=== PATIENT | female | born 1950 | race Two or more races ===

== ENCOUNTER 2021-05-28 14:59 | Inpatient (IN) | payer OTHER ==
[~2021-05-28] VITALS: Ht 165.1 cm; Wt 99.6 kg
[2021-05-28] MEDS ORDERED: DexAMETHasone SOD PHOS 10MG/1ML VIAL INJ IV ONE (15:30)
[2021-05-28] MEDS ORDERED: cefTRIAXone 1GM/50ML D5W 50 ML IV ONE (15:30)
[2021-05-28 15:40] LABS: Basophils # (auto) 0.1 10 ^3/uL (0-0.2); Eosinophils # (auto) 0 10 ^3/uL (0-0.8); Hematocrit 43.2 % (36.0-46.0); Hemoglobin 14.2 g/dL (12.2-16.2); Lymphocytes % (auto) 19.9 % (10.0-50.0); Mean Corpuscular Hemoglobin 28.5 pg (28.0-32.0); Mean Corpuscular Volume 86.5 fL (80.0-100.0); Monocytes # (auto) 0.4 10 ^3/uL (0-1.3); Monocytes % (auto) 8.1 % (0.0-12.0); Neutrophils # (auto) 3.7 10 ^3/uL (1.6-8.6); Nucleated Red Blood Cells % 0.2 %; Red Blood Cells 4.99 10^6/uL (4.0-5.20); White Blood Cell 5.2 10^3/uL (4.4-10.8)
[2021-05-28 15:57] LABS: INR 1.09 (0.9-1.15); Partial Thromboplastin Time 30.5 sec (23.6-33.0)
[2021-05-28 15:58] LABS: Alanine Aminotransferase 91 U/L (13-56); Albumin 2.8 g/dL (3.4-5.0); Anion Gap 11 (5-15); Aspartate Aminotransferase 130 U/L (15-37); Blood Urea Nitrogen 23 mg/dL (7-18); Calcium 8.7 mg/dL (8.5-10.1); Carbon Dioxide 26 mmol/L (21-32); Chloride 99 mmol/L (98-107); Glucose 123 mg/dL (74-106); Potassium 3.3 mmol/L (3.5-5.1); Sodium 136 mmol/L (136-145)
[2021-05-28 16:03] LABS: Alkaline Phosphatase 66 U/L (45-117); Bilirubin, Total 0.8 mg/dL (0.2-1.0); GFR African American 53 mL/min; GFR Non-African American 44 mL/min; Total Protein 7.7 g/dL (6.4-8.2)
[2021-05-28 16:06] LABS: Lactic Acid w/Reflex 2.5 mmol/L (0.4-2.0)
[2021-05-28] MEDS ORDERED: ACETAMINOPHEN 325 MG TAB PO ONE (17:15)
[2021-05-28] MEDS ORDERED: MORPHINE SULFATE INJECTION 2 MG/ML SYRG IV PRN (18:00)
[2021-05-28] MEDS ORDERED: ACETAMINOPHEN 500 MG TAB PO PRN (18:00)
[2021-05-28] MEDS ORDERED: REMDESIVIR PER PHARMACY 0 ML IV SCH ×3 (18:00→18:30)
[2021-05-28] MEDS ORDERED: NITROGLYCERIN 0.4 MG SL TAB SL PRN (18:00)
[2021-05-28] MEDS ORDERED: POTASSIUM EFFERVESENT TAB 25 MEQ PO ONE (18:00)
[2021-05-28] MEDS ORDERED: IOHEXOL 350 MG/ML 100ML IJ ONE (18:32)
[2021-05-28] MEDS: AZITHROMYCIN 500MG/ 250ML 250 ML IV SCH (18:50)
[2021-05-28] MEDS: ASCORBIC ACID 1,000 MG TAB PO SCH (18:51)
[2021-05-28] MEDS: CHOLECALCIFEROL (VITD3) 2,000 UNIT CAP/TAB PO SCH (18:51)
[2021-05-28] MEDS: ZINC SULFATE 220mg CAP or TAB PO SCH (18:51)
[2021-05-28 21:52] VITALS: BP 142/69
[2021-05-28] MEDS: ENOXAPARIN SOD 40 MG/0.4 ML SYRINGE SC SCH (22:49)
[2021-05-28 23:00] VITALS: BP 124/69
[2021-05-29] VITALS (8 sets, daily range): BP systolic 110–142; BP diastolic 59–71
[2021-05-29 05:55] LABS: Basophils # (auto) 0 10 ^3/uL (0-0.2); Basophils % (auto) 0.5 % (0.0-2.0); Eosinophils # (auto) 0 10 ^3/uL (0-0.8); Hematocrit 41.1 % (36.0-46.0); Hemoglobin 13.8 g/dL (12.2-16.2); Lymphocytes # (auto) 0.6 10 ^3/uL (0.4-5.4); Lymphocytes % (auto) 12.9 % (10.0-50.0); Mean Corpuscular Hgb Conc. 33.7 g/dL (32.0-36.0); Monocytes # (auto) 0.4 10 ^3/uL (0-1.3); Monocytes % (auto) 8.3 % (0.0-12.0); Neutrophils # (auto) 3.6 10 ^3/uL (1.6-8.6); Neutrophils % (auto) 78.3 % (37.0-80.0); Nucleated Red Blood Cells % 0.2 %; Red Blood Cells 4.78 10^6/uL (4.0-5.20); Red Cell Distribution Width 14.2 % (11.8-14.3); White Blood Cell 4.6 10^3/uL (4.4-10.8)
[2021-05-29 06:10] LABS: Albumin 2.4 g/dL (3.4-5.0); BUN/Creatinine Ratio 25.4; Calcium 8.6 mg/dL (8.5-10.1); Potassium 3.5 mmol/L (3.5-5.1)
[2021-05-29 06:13] LABS: Bilirubin, Total 0.6 mg/dL (0.2-1.0); Total Protein 7.3 g/dL (6.4-8.2)
[2021-05-29] MEDS: ALBUTEROL SULF HFA 90MCG INH 200DOSE IN PRN ×2 (07:59→18:56)
[2021-05-29] MEDS: BUDESONIDE (INHALATION) 180 MCG IH IN SCH ×3 (07:59→18:56)
[2021-05-29] MEDS: DexAMETHasone SOD PHOS 10MG/1ML VIAL INJ IV SCH (09:58)
[2021-05-29] MEDS: cefTRIAXone 1GM/50ML D5W 50 ML IV SCH (09:58)
[2021-05-29] MEDS: CHOLECALCIFEROL (VITD3) 2,000 UNIT CAP/TAB PO SCH (09:59)
[2021-05-29] MEDS: AZITHROMYCIN 500MG/ 250ML 250 ML IV SCH (09:59)
[2021-05-29] MEDS: ENOXAPARIN SOD 40 MG/0.4 ML SYRINGE SC SCH ×2 (09:59→21:54)
[2021-05-29] MEDS: ASCORBIC ACID 1,000 MG TAB PO SCH (09:59)
[2021-05-29] MEDS: ZINC SULFATE 220mg CAP or TAB PO SCH (09:59)
[2021-05-29] MEDS ORDERED: REMDESIVIR PER PHARMACY 0 ML IV SCH ×3 (10:45→18:00)
[2021-05-29] MEDS ORDERED: LIOT25TA19 PO (14:36)
[2021-05-29] MEDS ORDERED: ALLO300T2 PO (14:36)
[2021-05-29] MEDS ORDERED: LOVA40TA72 PO (14:36)
[2021-05-29] MEDS ORDERED: HYDR25TA5 PO (14:36)
[2021-05-29] MEDS ORDERED: GEMF-19 PO (14:36)
[2021-05-29] MEDS ORDERED: REMDESIVIR 200 MG in NS 210ml LOADING DOSE ADULT IV ONE (15:00)
[2021-05-29] MEDS: SODIUM CHLORIDE 0.9% 1,000 ML IV SCH (22:45)
[2021-05-30 05:22] LABS: Basophils # (auto) 0 10 ^3/uL (0-0.2); Basophils % (auto) 0.1 % (0.0-2.0); Eosinophils # (auto) 0 10 ^3/uL (0-0.8); Hematocrit 37.4 % (36.0-46.0); Hemoglobin 12.7 g/dL (12.2-16.2); Lymphocytes # (auto) 0.8 10 ^3/uL (0.4-5.4); Lymphocytes % (auto) 10.7 % (10.0-50.0); Mean Corpuscular Hemoglobin 29.4 pg (28.0-32.0); Mean Corpuscular Volume 86.4 fL (80.0-100.0); Monocytes # (auto) 0.4 10 ^3/uL (0-1.3); Monocytes % (auto) 5.5 % (0.0-12.0); Neutrophils # (auto) 6.3 10 ^3/uL (1.6-8.6); Neutrophils % (auto) 83.7 % (37.0-80.0); Red Blood Cells 4.33 10^6/uL (4.0-5.20); Red Cell Distribution Width 14.3 % (11.8-14.3); White Blood Cell 7.6 10^3/uL (4.4-10.8)
[2021-05-30 05:40] LABS: Potassium 3.2 mmol/L (3.5-5.1)
[2021-05-30 05:56] VITALS: BP 121/71
[2021-05-30 06:11] LABS: Albumin 2.3 g/dL (3.4-5.0); BUN/Creatinine Ratio 31.5; Bilirubin, Total 0.4 mg/dL (0.2-1.0); CRP High Sensitivity 2.61 mg/dL (< 0.3); Calcium 8.5 mg/dL (8.5-10.1); Total Protein 6.7 g/dL (6.4-8.2)
[2021-05-30] MEDS: ALBUTEROL SULF HFA 90MCG INH 200DOSE IN PRN ×2 (06:20→22:18)
[2021-05-30] MEDS: BUDESONIDE (INHALATION) 180 MCG IH IN SCH ×2 (06:20→22:18)
[2021-05-30] MEDS: SODIUM CHLORIDE 0.9% 1,000 ML IV SCH (06:31)
[2021-05-30] MEDS: Liothyronine Sodium 25 MCG TAB PO SCH (07:00)
[2021-05-30 09:00] VITALS: BP 121/58
[2021-05-30] MEDS: cefTRIAXone 1GM/50ML D5W 50 ML IV SCH (10:06)
[2021-05-30] MEDS: DexAMETHasone SOD PHOS 10MG/1ML VIAL INJ IV SCH (10:06)
[2021-05-30] MEDS: AZITHROMYCIN 500MG/ 250ML 250 ML IV SCH (10:07)
[2021-05-30] MEDS: ZINC SULFATE 220mg CAP or TAB PO SCH (10:07)
[2021-05-30] MEDS: ALLOPURINOL 300 MG TAB PO SCH (10:08)
[2021-05-30] MEDS: CHOLECALCIFEROL (VITD3) 2,000 UNIT CAP/TAB PO SCH (10:08)
[2021-05-30] MEDS: GEMFIBROZIL 600 MG TAB PO SCH ×2 (10:08→21:09)
[2021-05-30] MEDS: ASCORBIC ACID 1,000 MG TAB PO SCH (10:08)
[2021-05-30] MEDS: ENOXAPARIN SOD 40 MG/0.4 ML SYRINGE SC SCH ×2 (10:09→21:09)
[2021-05-30 13:00] VITALS: BP 132/65
[2021-05-30 17:00] VITALS: BP 110/61
[2021-05-30] MEDS: REMDESIVIR 100mg 100 MG in SODIUM CHL 0.9% 230 ML IV SCH (18:00)
[2021-05-30] MEDS: PRAVASTATIN SODIUM 20 MG TAB PO SCH (21:09)
[2021-05-30 22:00] VITALS: BP 126/70
[2021-05-31 05:00] VITALS: BP 129/73
[2021-05-31 06:08] LABS: Basophils # (auto) 0 10 ^3/uL (0-0.2); Basophils % (auto) 0.3 % (0.0-2.0); Eosinophils # (auto) 0 10 ^3/uL (0-0.8); Hematocrit 37.4 % (36.0-46.0); Hemoglobin 12.5 g/dL (12.2-16.2); Lymphocytes # (auto) 0.7 10 ^3/uL (0.4-5.4); Lymphocytes % (auto) 12.2 % (10.0-50.0); Mean Corpuscular Hemoglobin 28.9 pg (28.0-32.0); Mean Corpuscular Hgb Conc. 33.3 g/dL (32.0-36.0); Mean Corpuscular Volume 86.8 fL (80.0-100.0); Monocytes # (auto) 0.4 10 ^3/uL (0-1.3); Monocytes % (auto) 7.6 % (0.0-12.0); Neutrophils # (auto) 4.4 10 ^3/uL (1.6-8.6); Neutrophils % (auto) 79.9 % (37.0-80.0); Nucleated Red Blood Cells % 0.1 %; Red Blood Cells 4.31 10^6/uL (4.0-5.20); Red Cell Distribution Width 14.5 % (11.8-14.3); White Blood Cell 5.5 10^3/uL (4.4-10.8)
[2021-05-31 06:31] LABS: Potassium 3.5 mmol/L (3.5-5.1)
[2021-05-31 06:36] LABS: Albumin 2.1 g/dL (3.4-5.0); BUN/Creatinine Ratio 31.3; Calcium 8.2 mg/dL (8.5-10.1)
[2021-05-31 06:39] LABS: Bilirubin, Total 0.3 mg/dL (0.2-1.0); Total Protein 6.2 g/dL (6.4-8.2)
[2021-05-31] MEDS: BUDESONIDE (INHALATION) 180 MCG IH IN SCH ×2 (06:39→21:58)
[2021-05-31] MEDS: ALBUTEROL SULF HFA 90MCG INH 200DOSE IN PRN ×2 (06:39→21:58)
[2021-05-31] MEDS: Liothyronine Sodium 25 MCG TAB PO SCH (06:45)
[2021-05-31] MEDS: cefTRIAXone 1GM/50ML D5W 50 ML IV SCH (08:40)
[2021-05-31 09:00] VITALS: BP 132/57
[2021-05-31] MEDS: DexAMETHasone SOD PHOS 10MG/1ML VIAL INJ IV SCH (09:47)
[2021-05-31] MEDS: AZITHROMYCIN 500MG/ 250ML 250 ML IV SCH (09:47)
[2021-05-31] MEDS: GEMFIBROZIL 600 MG TAB PO SCH ×2 (09:48→20:47)
[2021-05-31] MEDS: ENOXAPARIN SOD 40 MG/0.4 ML SYRINGE SC SCH ×2 (09:48→20:47)
[2021-05-31] MEDS: CHOLECALCIFEROL (VITD3) 2,000 UNIT CAP/TAB PO SCH (09:48)
[2021-05-31] MEDS: ZINC SULFATE 220mg CAP or TAB PO SCH (09:48)
[2021-05-31] MEDS: ALLOPURINOL 300 MG TAB PO SCH (09:48)
[2021-05-31] MEDS: ASCORBIC ACID 1,000 MG TAB PO SCH (09:48)
[2021-05-31 13:00] VITALS: BP 135/65
[2021-05-31] MEDS: REMDESIVIR 100mg 100 MG in SODIUM CHL 0.9% 230 ML IV SCH (15:11)
[2021-05-31 17:00] VITALS: BP 139/70
[2021-05-31] MEDS: PRAVASTATIN SODIUM 20 MG TAB PO SCH (20:47)
[2021-05-31 22:00] VITALS: BP 136/72
[2021-06-01 05:00] VITALS: BP 121/70
[2021-06-01 05:29] LABS: Basophils # (auto) 0 10 ^3/uL (0-0.2); Basophils % (auto) 0.1 % (0.0-2.0); Eosinophils # (auto) 0 10 ^3/uL (0-0.8); Hematocrit 37.7 % (36.0-46.0); Hemoglobin 12.5 g/dL (12.2-16.2); Lymphocytes # (auto) 0.7 10 ^3/uL (0.4-5.4); Lymphocytes % (auto) 10.4 % (10.0-50.0); Mean Corpuscular Hemoglobin 28.6 pg (28.0-32.0); Mean Corpuscular Hgb Conc. 33.2 g/dL (32.0-36.0); Mean Corpuscular Volume 86.1 fL (80.0-100.0); Monocytes # (auto) 0.5 10 ^3/uL (0-1.3); Monocytes % (auto) 6.8 % (0.0-12.0); Neutrophils # (auto) 5.7 10 ^3/uL (1.6-8.6); Neutrophils % (auto) 82.7 % (37.0-80.0); Nucleated Red Blood Cells % 0.1 %; Red Blood Cells 4.38 10^6/uL (4.0-5.20); Red Cell Distribution Width 14.2 % (11.8-14.3); White Blood Cell 6.9 10^3/uL (4.4-10.8)
[2021-06-01] MEDS: BUDESONIDE (INHALATION) 180 MCG IH IN SCH ×2 (06:19→20:52)
[2021-06-01] MEDS: ALBUTEROL SULF HFA 90MCG INH 200DOSE IN PRN (06:19)
[2021-06-01 06:20] LABS: Calcium 8.5 mg/dL (8.5-10.1); Potassium 3.4 mmol/L (3.5-5.1)
[2021-06-01 06:23] LABS: BUN/Creatinine Ratio 25.6
[2021-06-01 06:31] LABS: Bilirubin, Total 0.3 mg/dL (0.2-1.0); Total Protein 6.2 g/dL (6.4-8.2)
[2021-06-01] MEDS: Liothyronine Sodium 25 MCG TAB PO SCH (06:49)
[2021-06-01 09:00] VITALS: BP 123/55
[2021-06-01] MEDS: cefTRIAXone 1GM/50ML D5W 50 ML IV SCH ×2 (09:35→16:31)
[2021-06-01] MEDS: DexAMETHasone SOD PHOS 10MG/1ML VIAL INJ IV SCH (09:35)
[2021-06-01] MEDS: ASCORBIC ACID 1,000 MG TAB PO SCH (09:36)
[2021-06-01] MEDS: GEMFIBROZIL 600 MG TAB PO SCH ×2 (09:36→21:36)
[2021-06-01] MEDS: ZINC SULFATE 220mg CAP or TAB PO SCH (09:36)
[2021-06-01] MEDS: AZITHROMYCIN 500MG/ 250ML 250 ML IV SCH (09:36)
[2021-06-01] MEDS: CHOLECALCIFEROL (VITD3) 2,000 UNIT CAP/TAB PO SCH (09:39)
[2021-06-01] MEDS: ALLOPURINOL 300 MG TAB PO SCH (09:41)
[2021-06-01] MEDS: ENOXAPARIN SOD 40 MG/0.4 ML SYRINGE SC SCH ×2 (09:41→21:36)
[2021-06-01 13:00] VITALS: BP 126/66
[2021-06-01] MEDS: REMDESIVIR 100mg 100 MG in SODIUM CHL 0.9% 230 ML IV SCH (16:31)
[2021-06-01 17:06] VITALS: BP 121/72
[2021-06-01] MEDS: ALBUTEROL SULF HFA 90MCG INH 200DOSE IN SCH (20:52)
[2021-06-01] MEDS: PRAVASTATIN SODIUM 20 MG TAB PO SCH (21:36)
[2021-06-01 22:00] VITALS: BP 143/65
[2021-06-02 05:00] VITALS: BP 133/66
[2021-06-02] MEDS: Liothyronine Sodium 25 MCG TAB PO SCH (06:17)
[2021-06-02] MEDS: BUDESONIDE (INHALATION) 180 MCG IH IN SCH ×3 (06:19→19:38)
[2021-06-02] MEDS: ALBUTEROL SULF HFA 90MCG INH 200DOSE IN SCH ×4 (06:19→19:38)
[2021-06-02 06:22] LABS: Basophils # (auto) 0 10 ^3/uL (0-0.2); Basophils % (auto) 0.1 % (0.0-2.0); Eosinophils # (auto) 0 10 ^3/uL (0-0.8); Hematocrit 37.8 % (36.0-46.0); Hemoglobin 12.9 g/dL (12.2-16.2); Lymphocytes # (auto) 0.9 10 ^3/uL (0.4-5.4); Lymphocytes % (auto) 13.4 % (10.0-50.0); Mean Corpuscular Hemoglobin 29.6 pg (28.0-32.0); Mean Corpuscular Volume 86.9 fL (80.0-100.0); Monocytes # (auto) 0.5 10 ^3/uL (0-1.3); Monocytes % (auto) 6.8 % (0.0-12.0); Neutrophils # (auto) 5.4 10 ^3/uL (1.6-8.6); Neutrophils % (auto) 79.7 % (37.0-80.0); Nucleated Red Blood Cells % 0.1 %; Red Blood Cells 4.35 10^6/uL (4.0-5.20); Red Cell Distribution Width 14.4 % (11.8-14.3); White Blood Cell 6.8 10^3/uL (4.4-10.8)
[2021-06-02 06:45] LABS: Potassium 3.5 mmol/L (3.5-5.1)
[2021-06-02 06:50] LABS: BUN/Creatinine Ratio 27.8; Calcium 8.7 mg/dL (8.5-10.1)
[2021-06-02 07:00] LABS: Bilirubin, Total 0.4 mg/dL (0.2-1.0); CRP High Sensitivity 1.64 mg/dL (< 0.3); Total Protein 6.3 g/dL (6.4-8.2)
[2021-06-02 08:56] VITALS: BP 132/67
[2021-06-02] MEDS: cefTRIAXone 1GM/50ML D5W 50 ML IV SCH (10:47)
[2021-06-02] MEDS: GEMFIBROZIL 600 MG TAB PO SCH ×2 (10:47→21:46)
[2021-06-02] MEDS: ZINC SULFATE 220mg CAP or TAB PO SCH (10:47)
[2021-06-02] MEDS: DexAMETHasone SOD PHOS 10MG/1ML VIAL INJ IV SCH (10:47)
[2021-06-02] MEDS: ASCORBIC ACID 1,000 MG TAB PO SCH (10:47)
[2021-06-02] MEDS: CHOLECALCIFEROL (VITD3) 2,000 UNIT CAP/TAB PO SCH (10:48)
[2021-06-02] MEDS: ENOXAPARIN SOD 40 MG/0.4 ML SYRINGE SC SCH ×2 (10:48→21:46)
[2021-06-02] MEDS: ALLOPURINOL 300 MG TAB PO SCH (10:48)
[2021-06-02 13:00] VITALS: BP 137/63
[2021-06-02] MEDS: REMDESIVIR 100mg 100 MG in SODIUM CHL 0.9% 230 ML IV SCH (16:00)
[2021-06-02 17:00] VITALS: BP 148/71
[2021-06-02 21:46] VITALS: BP 129/71
[2021-06-02] MEDS: PRAVASTATIN SODIUM 20 MG TAB PO SCH (21:46)
[2021-06-03 04:46] VITALS: BP 129/71
[2021-06-03 05:25] VITALS: BP 123/78
[2021-06-03 06:09] LABS: Hematocrit 38.7 % (36.0-46.0); Hemoglobin 13.3 g/dL (12.2-16.2); Mean Corpuscular Hemoglobin 29.8 pg (28.0-32.0); Mean Corpuscular Hgb Conc. 34.3 g/dL (32.0-36.0); Mean Corpuscular Volume 86.8 fL (80.0-100.0); Red Blood Cells 4.46 10^6/uL (4.0-5.20); Red Cell Distribution Width 14.3 % (11.8-14.3); White Blood Cell 6.6 10^3/uL (4.4-10.8)
[2021-06-03] MEDS: ALBUTEROL SULF HFA 90MCG INH 200DOSE IN SCH (06:20)
[2021-06-03] MEDS: BUDESONIDE (INHALATION) 180 MCG IH IN SCH (06:21)
[2021-06-03 06:29] LABS: Potassium 3.6 mmol/L (3.5-5.1)
[2021-06-03 06:38] LABS: BUN/Creatinine Ratio 24.4; Bilirubin, Total 0.4 mg/dL (0.2-1.0); Calcium 8.7 mg/dL (8.5-10.1); Total Protein 6.3 g/dL (6.4-8.2)
[2021-06-03] MEDS: Liothyronine Sodium 25 MCG TAB PO SCH (07:00)
[2021-06-03 07:20] LABS: Basophils % (manual) 0 (0.0-2.0); Blast Cells 0; Eosinophils % (manual) 0 (0-7); Metamyelocytes % 0; Myelocytes % 0; Promyelocytes % 0; Reactive Lymphocytes 0
[2021-06-03] MEDS: ALLOPURINOL 300 MG TAB PO SCH (08:42)
[2021-06-03] MEDS: DexAMETHasone SOD PHOS 10MG/1ML VIAL INJ IV SCH (08:42)
[2021-06-03] MEDS: ENOXAPARIN SOD 40 MG/0.4 ML SYRINGE SC SCH ×2 (08:42→22:16)
[2021-06-03] MEDS: cefTRIAXone 1GM/50ML D5W 50 ML IV SCH (08:42)
[2021-06-03] MEDS: ZINC SULFATE 220mg CAP or TAB PO SCH (08:42)
[2021-06-03] MEDS: ASCORBIC ACID 1,000 MG TAB PO SCH (08:43)
[2021-06-03] MEDS: CHOLECALCIFEROL (VITD3) 2,000 UNIT CAP/TAB PO SCH (08:43)
[2021-06-03] MEDS: GEMFIBROZIL 600 MG TAB PO SCH ×2 (08:43→22:15)
[2021-06-03 09:00] VITALS: BP 126/67
[2021-06-03 09:05] LABS: Band Neutrophils % (manual) 1; Lymphocytes % (manual) 9 (10.0-50.0); Monocytes % (manual) 12 (0-12)
[2021-06-03 13:00] VITALS: BP 142/72
[2021-06-03] MEDS ORDERED: FUROSEMIDE 20 MG/2 ML VIAL IV ONE (13:00)
[2021-06-03 17:12] VITALS: BP 102/53
[2021-06-03 22:00] VITALS: BP 127/68
[2021-06-03] MEDS: PRAVASTATIN SODIUM 20 MG TAB PO SCH (22:15)
[2021-06-04 05:00] VITALS: BP 124/72
[2021-06-04] MEDS: BUDESONIDE (INHALATION) 180 MCG IH IN SCH ×2 (06:07→20:21)
[2021-06-04 06:42] LABS: Basophils # (auto) 0 10 ^3/uL (0-0.2); Eosinophils # (auto) 0 10 ^3/uL (0-0.8); Eosinophils % (auto) 0.5 % (0.0-7.0); Hematocrit 40.4 % (36.0-46.0); Hemoglobin 13.4 g/dL (12.2-16.2); Lymphocytes % (auto) 13.7 % (10.0-50.0); Mean Corpuscular Hgb Conc. 33.3 g/dL (32.0-36.0); Mean Corpuscular Volume 87.1 fL (80.0-100.0); Monocytes # (auto) 0.5 10 ^3/uL (0-1.3); Monocytes % (auto) 6.6 % (0.0-12.0); Neutrophils % (auto) 79.2 % (37.0-80.0); Nucleated Red Blood Cells % 0.1 %; Red Blood Cells 4.64 10^6/uL (4.0-5.20); Red Cell Distribution Width 14.1 % (11.8-14.3); White Blood Cell 7.5 10^3/uL (4.4-10.8)
[2021-06-04] MEDS: Liothyronine Sodium 25 MCG TAB PO SCH (06:45)
[2021-06-04 06:56] LABS: Potassium 3.5 mmol/L (3.5-5.1)
[2021-06-04 07:13] LABS: Albumin 2.1 g/dL (3.4-5.0); Bilirubin, Total 0.4 mg/dL (0.2-1.0); CRP High Sensitivity 1.24 mg/dL (< 0.3); Calcium 8.7 mg/dL (8.5-10.1); Total Protein 6.5 g/dL (6.4-8.2)
[2021-06-04 08:00] VITALS: BP 124/64
[2021-06-04 09:14] VITALS: BP 124/64
[2021-06-04] MEDS: cefTRIAXone 1GM/50ML D5W 50 ML IV SCH (09:22)
[2021-06-04] MEDS: CHOLECALCIFEROL (VITD3) 2,000 UNIT CAP/TAB PO SCH (09:23)
[2021-06-04] MEDS: DexAMETHasone SOD PHOS 10MG/1ML VIAL INJ IV SCH (09:23)
[2021-06-04] MEDS: ENOXAPARIN SOD 40 MG/0.4 ML SYRINGE SC SCH ×2 (09:23→21:39)
[2021-06-04] MEDS: GEMFIBROZIL 600 MG TAB PO SCH ×2 (09:24→21:39)
[2021-06-04] MEDS: ZINC SULFATE 220mg CAP or TAB PO SCH (09:24)
[2021-06-04] MEDS: ASCORBIC ACID 1,000 MG TAB PO SCH (09:25)
[2021-06-04] MEDS: ALLOPURINOL 300 MG TAB PO SCH (09:25)
[2021-06-04] MEDS ORDERED: FUROSEMIDE 40 MG/4 ML VIAL IV ONE (11:00)
[2021-06-04 13:05] VITALS: BP 100/46
[2021-06-04 17:27] VITALS: BP 114/63
[2021-06-04] MEDS: ALBUTEROL SULF HFA 90MCG INH 200DOSE IN PRN (20:21)
[2021-06-04] MEDS: PRAVASTATIN SODIUM 20 MG TAB PO SCH (21:38)
[2021-06-04 22:00] VITALS: BP 106/67
[2021-06-05 05:00] VITALS: BP 120/68
[2021-06-05] MEDS: Liothyronine Sodium 25 MCG TAB PO SCH (06:14)
[2021-06-05 07:00] LABS: Basophils # (auto) 0 10 ^3/uL (0-0.2); Eosinophils # (auto) 0 10 ^3/uL (0-0.8); Eosinophils % (auto) 0.1 % (0.0-7.0); Hemoglobin 13.5 g/dL (12.2-16.2); Lymphocytes # (auto) 0.7 10 ^3/uL (0.4-5.4); Lymphocytes % (auto) 8.8 % (10.0-50.0); Mean Corpuscular Hemoglobin 29.2 pg (28.0-32.0); Mean Corpuscular Hgb Conc. 33.7 g/dL (32.0-36.0); Mean Corpuscular Volume 86.8 fL (80.0-100.0); Monocytes # (auto) 0.6 10 ^3/uL (0-1.3); Monocytes % (auto) 7.8 % (0.0-12.0); Neutrophils # (auto) 6.8 10 ^3/uL (1.6-8.6); Neutrophils % (auto) 83.3 % (37.0-80.0); Red Blood Cells 4.61 10^6/uL (4.0-5.20); Red Cell Distribution Width 14.1 % (11.8-14.3); White Blood Cell 8.1 10^3/uL (4.4-10.8)
[2021-06-05 07:13] LABS: Albumin 2.2 g/dL (3.4-5.0); Calcium 8.8 mg/dL (8.5-10.1); Magnesium 2.2 mg/dL (1.6-2.6); Potassium 3.9 mmol/L (3.5-5.1)
[2021-06-05] MEDS: ALBUTEROL SULF HFA 90MCG INH 200DOSE IN PRN ×2 (07:19→19:46)
[2021-06-05] MEDS: BUDESONIDE (INHALATION) 180 MCG IH IN SCH ×2 (07:19→19:46)
[2021-06-05 07:22] LABS: BUN/Creatinine Ratio 34.1; Bilirubin, Total 0.4 mg/dL (0.2-1.0); CRP High Sensitivity 1.32 mg/dL (< 0.3); Total Protein 6.8 g/dL (6.4-8.2)
[2021-06-05] MEDS: cefTRIAXone 1GM/50ML D5W 50 ML IV SCH (08:53)
[2021-06-05 09:00] VITALS: BP 108/51
[2021-06-05] MEDS: FUROSEMIDE 40 MG/4 ML VIAL IV SCH (09:27)
[2021-06-05] MEDS: ENOXAPARIN SOD 40 MG/0.4 ML SYRINGE SC SCH ×2 (09:27→21:40)
[2021-06-05] MEDS: DexAMETHasone SOD PHOS 10MG/1ML VIAL INJ IV SCH (09:27)
[2021-06-05] MEDS: ZINC SULFATE 220mg CAP or TAB PO SCH (09:28)
[2021-06-05] MEDS: GEMFIBROZIL 600 MG TAB PO SCH ×2 (09:28→21:40)
[2021-06-05] MEDS: ALLOPURINOL 300 MG TAB PO SCH (09:28)
[2021-06-05] MEDS: CHOLECALCIFEROL (VITD3) 2,000 UNIT CAP/TAB PO SCH (09:28)
[2021-06-05] MEDS: ASCORBIC ACID 1,000 MG TAB PO SCH (09:28)
[2021-06-05 16:56] VITALS: BP 112/57
[2021-06-05 20:00] VITALS: BP 112/57
[2021-06-05] MEDS: PRAVASTATIN SODIUM 20 MG TAB PO SCH (21:40)
[2021-06-05 22:00] VITALS: BP 115/55
[2021-06-06] VITALS (7 sets, daily range): BP systolic 106–133; BP diastolic 48–77
[2021-06-06 05:59] LABS: Albumin 2.2 g/dL (3.4-5.0); BUN/Creatinine Ratio 36.9
[2021-06-06 06:02] LABS: Bilirubin, Total 0.4 mg/dL (0.2-1.0); Total Protein 6.9 g/dL (6.4-8.2)
[2021-06-06] MEDS: Liothyronine Sodium 25 MCG TAB PO SCH (06:16)
[2021-06-06] MEDS: ALBUTEROL SULF HFA 90MCG INH 200DOSE IN PRN ×2 (06:32→19:28)
[2021-06-06] MEDS: BUDESONIDE (INHALATION) 180 MCG IH IN SCH ×2 (06:33→19:28)
[2021-06-06] MEDS: cefTRIAXone 1GM/50ML D5W 50 ML IV SCH (10:20)
[2021-06-06] MEDS: ASCORBIC ACID 1,000 MG TAB PO SCH (10:21)
[2021-06-06] MEDS: DexAMETHasone SOD PHOS 10MG/1ML VIAL INJ IV SCH (10:21)
[2021-06-06] MEDS: ZINC SULFATE 220mg CAP or TAB PO SCH (10:21)
[2021-06-06] MEDS: GEMFIBROZIL 600 MG TAB PO SCH ×2 (10:21→21:41)
[2021-06-06] MEDS: FUROSEMIDE 40 MG/4 ML VIAL IV SCH (10:21)
[2021-06-06] MEDS: ENOXAPARIN SOD 40 MG/0.4 ML SYRINGE SC SCH ×2 (10:22→21:41)
[2021-06-06] MEDS: CHOLECALCIFEROL (VITD3) 2,000 UNIT CAP/TAB PO SCH (10:22)
[2021-06-06] MEDS: ALLOPURINOL 300 MG TAB PO SCH (10:22)
[2021-06-06] MEDS: PRAVASTATIN SODIUM 20 MG TAB PO SCH (21:41)
[2021-06-07 05:00] VITALS: BP 130/78
[2021-06-07] MEDS: Liothyronine Sodium 25 MCG TAB PO SCH (06:38)
[2021-06-07] MEDS: ALBUTEROL SULF HFA 90MCG INH 200DOSE IN PRN ×2 (08:49→22:22)
[2021-06-07] MEDS: BUDESONIDE (INHALATION) 180 MCG IH IN SCH ×2 (08:50→22:22)
[2021-06-07 09:00] VITALS: BP 93/47
[2021-06-07] MEDS: cefTRIAXone 1GM/50ML D5W 50 ML IV SCH (09:32)
[2021-06-07] MEDS: DexAMETHasone SOD PHOS 10MG/1ML VIAL INJ IV SCH (09:33)
[2021-06-07] MEDS: ZINC SULFATE 220mg CAP or TAB PO SCH (09:33)
[2021-06-07] MEDS: FUROSEMIDE 40 MG/4 ML VIAL IV SCH (09:33)
[2021-06-07] MEDS: GEMFIBROZIL 600 MG TAB PO SCH ×2 (09:33→22:05)
[2021-06-07] MEDS: ALLOPURINOL 300 MG TAB PO SCH (09:34)
[2021-06-07] MEDS: CHOLECALCIFEROL (VITD3) 2,000 UNIT CAP/TAB PO SCH (09:34)
[2021-06-07] MEDS: ASCORBIC ACID 1,000 MG TAB PO SCH (09:34)
[2021-06-07] MEDS: ENOXAPARIN SOD 40 MG/0.4 ML SYRINGE SC SCH ×2 (09:35→22:05)
[2021-06-07 13:00] VITALS: BP 116/72
[2021-06-07 17:00] VITALS: BP 108/53
[2021-06-07 20:00] VITALS: BP 103/73
[2021-06-07] MEDS: PRAVASTATIN SODIUM 20 MG TAB PO SCH (22:06)
[2021-06-07 22:31] VITALS: BP 105/73
[2021-06-08 05:00] VITALS: BP 134/75
[2021-06-08] MEDS: Liothyronine Sodium 25 MCG TAB PO SCH (07:12)
[2021-06-08] MEDS: cefTRIAXone 1GM/50ML D5W 50 ML IV SCH (08:34)
[2021-06-08 09:00] VITALS: BP 107/61
[2021-06-08] MEDS: ALLOPURINOL 300 MG TAB PO SCH (09:35)
[2021-06-08] MEDS: FUROSEMIDE 40 MG/4 ML VIAL IV SCH (09:35)
[2021-06-08] MEDS: DexAMETHasone SOD PHOS 10MG/1ML VIAL INJ IV SCH (09:35)
[2021-06-08] MEDS: CHOLECALCIFEROL (VITD3) 2,000 UNIT CAP/TAB PO SCH (09:35)
[2021-06-08] MEDS: ASCORBIC ACID 1,000 MG TAB PO SCH (09:35)
[2021-06-08] MEDS: GEMFIBROZIL 600 MG TAB PO SCH ×2 (09:35→22:39)
[2021-06-08] MEDS: ZINC SULFATE 220mg CAP or TAB PO SCH (09:35)
[2021-06-08] MEDS: ENOXAPARIN SOD 40 MG/0.4 ML SYRINGE SC SCH ×2 (09:36→22:40)
[2021-06-08] MEDS: BUDESONIDE (INHALATION) 180 MCG IH IN SCH ×2 (10:33→21:50)
[2021-06-08] MEDS: ALBUTEROL SULF HFA 90MCG INH 200DOSE IN PRN ×2 (10:34→21:50)
[2021-06-08 13:00] VITALS: BP 114/71
[2021-06-08 17:00] VITALS: BP 115/51
[2021-06-08 21:54] VITALS: BP 115/51
[2021-06-08 22:00] VITALS: BP 116/65
[2021-06-08] MEDS: PRAVASTATIN SODIUM 20 MG TAB PO SCH (22:40)
[2021-06-09 05:30] VITALS: BP 112/70
[2021-06-09] MEDS: Liothyronine Sodium 25 MCG TAB PO SCH (06:44)
[2021-06-09] MEDS: BUDESONIDE (INHALATION) 180 MCG IH IN SCH ×2 (06:49→22:09)
[2021-06-09] MEDS: ALBUTEROL SULF HFA 90MCG INH 200DOSE IN PRN ×2 (06:49→22:09)
[2021-06-09 08:00] VITALS: BP 123/64
[2021-06-09 08:58] VITALS: BP 123/64
[2021-06-09] MEDS: GEMFIBROZIL 600 MG TAB PO SCH ×2 (09:56→21:38)
[2021-06-09] MEDS: CHOLECALCIFEROL (VITD3) 2,000 UNIT CAP/TAB PO SCH (09:56)
[2021-06-09] MEDS: ALLOPURINOL 300 MG TAB PO SCH (09:56)
[2021-06-09] MEDS: ASCORBIC ACID 1,000 MG TAB PO SCH (09:56)
[2021-06-09] MEDS: ZINC SULFATE 220mg CAP or TAB PO SCH (09:56)
[2021-06-09] MEDS: DexAMETHasone SOD PHOS 10MG/1ML VIAL INJ IV SCH (09:57)
[2021-06-09] MEDS: FUROSEMIDE 40 MG/4 ML VIAL IV SCH (10:27)
[2021-06-09 13:00] VITALS: BP 103/49
[2021-06-09] MEDS: PRAVASTATIN SODIUM 20 MG TAB PO SCH (21:39)
[2021-06-09 22:00] VITALS: BP 107/55
[2021-06-10 05:00] VITALS: BP 121/73
[2021-06-10] MEDS: Liothyronine Sodium 25 MCG TAB PO SCH (06:22)
[2021-06-10] MEDS: ALBUTEROL SULF HFA 90MCG INH 200DOSE IN PRN (07:12)
[2021-06-10] MEDS: BUDESONIDE (INHALATION) 180 MCG IH IN SCH ×2 (07:12→20:10)
[2021-06-10 07:21] LABS: Calcium 9.5 mg/dL (8.5-10.1); Potassium 3.9 mmol/L (3.5-5.1)
[2021-06-10 07:23] LABS: BUN/Creatinine Ratio 42.7
[2021-06-10] MEDS: ASCORBIC ACID 1,000 MG TAB PO SCH (09:28)
[2021-06-10] MEDS: GEMFIBROZIL 600 MG TAB PO SCH ×2 (09:29→21:28)
[2021-06-10] MEDS: DexAMETHasone SOD PHOS 10MG/1ML VIAL INJ IV SCH (09:29)
[2021-06-10] MEDS: CHOLECALCIFEROL (VITD3) 2,000 UNIT CAP/TAB PO SCH (09:29)
[2021-06-10] MEDS: ZINC SULFATE 220mg CAP or TAB PO SCH (09:29)
[2021-06-10] MEDS: ALLOPURINOL 300 MG TAB PO SCH (09:29)
[2021-06-10] MEDS: FUROSEMIDE 40 MG/4 ML VIAL IV SCH (09:30)
[2021-06-10 09:37] VITALS: BP 103/63
[2021-06-10 13:14] VITALS: BP 129/65
[2021-06-10 17:00] VITALS: BP 106/64
[2021-06-10] MEDS: ALBUTEROL SULF HFA 90MCG INH 200DOSE IN SCH (20:10)
[2021-06-10] MEDS: PRAVASTATIN SODIUM 20 MG TAB PO SCH (21:28)
[2021-06-10 22:00] VITALS: BP 114/62
[2021-06-11 05:00] VITALS: BP 119/66
[2021-06-11] MEDS: Liothyronine Sodium 25 MCG TAB PO SCH (06:34)
[2021-06-11 06:50] LABS: Potassium 3.8 mmol/L (3.5-5.1)
[2021-06-11 07:00] LABS: BUN/Creatinine Ratio 42.9; Calcium 9.3 mg/dL (8.5-10.1)
[2021-06-11 08:00] VITALS: BP 108/57
[2021-06-11] MEDS: ALBUTEROL SULF HFA 90MCG INH 200DOSE IN SCH ×2 (09:34→20:34)
[2021-06-11] MEDS: BUDESONIDE (INHALATION) 180 MCG IH IN SCH ×2 (09:34→20:34)
[2021-06-11] MEDS: DexAMETHasone SOD PHOS 10MG/1ML VIAL INJ IV SCH (09:40)
[2021-06-11] MEDS: GEMFIBROZIL 600 MG TAB PO SCH ×2 (09:41→21:41)
[2021-06-11] MEDS: CHOLECALCIFEROL (VITD3) 2,000 UNIT CAP/TAB PO SCH (09:41)
[2021-06-11] MEDS: ALLOPURINOL 300 MG TAB PO SCH (09:41)
[2021-06-11] MEDS: ZINC SULFATE 220mg CAP or TAB PO SCH (09:41)
[2021-06-11] MEDS: FUROSEMIDE 40 MG/4 ML VIAL IV SCH (09:41)
[2021-06-11] MEDS: ASCORBIC ACID 1,000 MG TAB PO SCH (09:42)
[2021-06-11 12:57] VITALS: BP 106/60
[2021-06-11 17:12] VITALS: BP 108/52
[2021-06-11 19:12] VITALS: BP 108/52
[2021-06-11] MEDS: PRAVASTATIN SODIUM 20 MG TAB PO SCH (21:41)
[2021-06-11 22:00] VITALS: BP 111/62
[2021-06-12 05:00] VITALS: BP 124/71
[2021-06-12 05:34] LABS: Basophils # (auto) 0.1 10 ^3/uL (0-0.2); Basophils % (auto) 0.9 % (0.0-2.0); Eosinophils # (auto) 0 10 ^3/uL (0-0.8); Eosinophils % (auto) 0.4 % (0.0-7.0); Hemoglobin 13.5 g/dL (12.2-16.2); Lymphocytes % (auto) 17.3 % (10.0-50.0); Mean Corpuscular Hemoglobin 28.7 pg (28.0-32.0); Mean Corpuscular Hgb Conc. 33.7 g/dL (32.0-36.0); Mean Corpuscular Volume 85.3 fL (80.0-100.0); Monocytes # (auto) 1.1 10 ^3/uL (0-1.3); Monocytes % (auto) 9.7 % (0.0-12.0); Neutrophils # (auto) 8.1 10 ^3/uL (1.6-8.6); Neutrophils % (auto) 71.7 % (37.0-80.0); Red Blood Cells 4.69 10^6/uL (4.0-5.20); Red Cell Distribution Width 14.1 % (11.8-14.3); White Blood Cell 11.3 10^3/uL (4.4-10.8)
[2021-06-12] MEDS: Liothyronine Sodium 25 MCG TAB PO SCH (06:57)
[2021-06-12] MEDS: BUDESONIDE (INHALATION) 180 MCG IH IN SCH ×2 (07:44→21:33)
[2021-06-12] MEDS: ALBUTEROL SULF HFA 90MCG INH 200DOSE IN SCH ×3 (07:44→21:33)
[2021-06-12 09:00] VITALS: BP 102/51
[2021-06-12] MEDS: DexAMETHasone SOD PHOS 10MG/1ML VIAL INJ IV SCH (09:10)
[2021-06-12] MEDS: ASCORBIC ACID 1,000 MG TAB PO SCH (09:11)
[2021-06-12] MEDS: ALLOPURINOL 300 MG TAB PO SCH (09:11)
[2021-06-12] MEDS: ZINC SULFATE 220mg CAP or TAB PO SCH (09:11)
[2021-06-12] MEDS: FUROSEMIDE 40 MG/4 ML VIAL IV SCH (09:11)
[2021-06-12] MEDS: CHOLECALCIFEROL (VITD3) 2,000 UNIT CAP/TAB PO SCH (09:12)
[2021-06-12] MEDS: GEMFIBROZIL 600 MG TAB PO SCH ×2 (09:12→21:08)
[2021-06-12 13:00] VITALS: BP 121/61
[2021-06-12 16:44] VITALS: BP 112/46
[2021-06-12] MEDS: PRAVASTATIN SODIUM 20 MG TAB PO SCH (21:08)
[2021-06-12 22:05] VITALS: BP 125/61
[2021-06-13 04:58] VITALS: BP 122/51
[2021-06-13] MEDS: Liothyronine Sodium 25 MCG TAB PO SCH (06:29)
[2021-06-13] MEDS: ALBUTEROL SULF HFA 90MCG INH 200DOSE IN SCH ×3 (06:29→20:35)
[2021-06-13] MEDS: BUDESONIDE (INHALATION) 180 MCG IH IN SCH ×2 (06:29→20:35)
[2021-06-13 08:00] VITALS: BP 134/51
[2021-06-13] MEDS: DexAMETHasone SOD PHOS 10MG/1ML VIAL INJ IV SCH (09:40)
[2021-06-13] MEDS: ZINC SULFATE 220mg CAP or TAB PO SCH (09:41)
[2021-06-13] MEDS: ASCORBIC ACID 1,000 MG TAB PO SCH (09:41)
[2021-06-13] MEDS: CHOLECALCIFEROL (VITD3) 2,000 UNIT CAP/TAB PO SCH (09:41)
[2021-06-13] MEDS: FUROSEMIDE 40 MG/4 ML VIAL IV SCH (09:41)
[2021-06-13] MEDS: ALLOPURINOL 300 MG TAB PO SCH (09:41)
[2021-06-13] MEDS: GEMFIBROZIL 600 MG TAB PO SCH (09:41)
[2021-06-13 12:00] VITALS: BP 130/70
[2021-06-13 16:00] VITALS: BP 126/72
[2021-06-13] MEDS ORDERED: PRED20TA2 PO (16:24)
[2021-06-13] MEDS ORDERED: AMOX500T86 PO (16:24)
[2021-06-13] MEDS ORDERED: PANT40TA2 PO (16:24)
[2021-06-13] MEDS ORDERED: BUDE20SU (16:24)
[2021-06-13 16:50] VITALS: BP 126/72
== END 2021-06-13 21:39 | disposition home or self-care (01) | DRG 177 ==
LOC: ER 15:01 → TELE 17:50 → TELE-EAST 20:31
PROVIDERS: ADMIT Nurse Practitioner Acute Care; ATTEND Hospitalist
PROC: XW033E5 Introduction of Remdesivir Anti-infective into Peripheral Vein, Percutaneous Approach, New Technology Group 5 (ICD-10-PCS; principal; 2021-05-29)
DX: U07.1 COVID-19 (principal); J12.82 Pneumonia due to coronavirus disease 2019; N17.0 Acute kidney failure with tubular necrosis; G93.41 Metabolic encephalopathy; J96.01 Acute respiratory failure with hypoxia; J98.11 Atelectasis; E87.6 Hypokalemia; I10 Essential (primary) hypertension; E03.9 Hypothyroidism, unspecified; E78.5 Hyperlipidemia, unspecified; D89.839 Cytokine release syndrome, grade unspecified; I95.1 Orthostatic hypotension; E66.01 Morbid (severe) obesity due to excess calories; R29.6 Repeated falls; R53.81 Other malaise; E78.1 Pure hyperglyceridemia; E88.09 Other disorders of plasma-protein metabolism, not elsewhere classified; Z68.36 Body mass index [BMI] 36.0-36.9, adult; Z91.19 Patient's noncompliance with other medical treatment and regimen
CPT/HCPCS: 36415; 70450; 71045; 71275; 80048; 80053; 82728; 82962; 83605; 83735; 84484; 85007; 85025; 85027; 85379; 85610; 85730; 86141; 87040; 87426; 93970; 94640; 95819; 96365; 96375; 97110; 97116; 97530; 99291; G0378; J0696; J1100